=== PATIENT | male | born 1975 | race Caucasian/White ===

== ENCOUNTER 2018-01-21 16:42 | Emergency (ER) | payer OTHER ==
--- NOTE | 2018-01-21 16:57 | EDPHY ---
H & P Stated Complaint: HX HERNIATED DISCS/[employer] YESTERDAY INCREASED PAIN NUMBNESS R FOOT Time Seen by Provider: 01/21/18 16:56 - Personal History Current Tetanus/Diphtheria Vaccine: Yes - Medical/Surgical History Hx Asthma: No Hx Chronic Respiratory Disease: No Hx Diabetes: No Hx Cardiac Disease: No Hx Renal Disease: No Hx Cirrhosis: No Hx Alcoholism: No Hx HIV/AIDS: No Hx Splenectomy or Spleen Trauma: No Other PMH: BACK PROB/APPY - Social History Smoking Status: Never smoked Constitutional: Initial Vital Signs Temperature (C) 36.5 C 01/21/18 16:51 Heart Rate 83 01/21/18 16:51 Respiratory Rate 18 01/21/18 16:51 Blood Pressure 124/64 H 01/21/18 16:51 O2 Sat (%) 94 01/21/18 16:51 O2 Delivery Mode Room Air Allergies/Adverse Reactions: No Known Allergies Allergy (Verified 01/21/18 16:49) Home Medications: Medication Instructions Recorded Ibuprofen 01/21/18 Prednisone 01/21/18 methylPREDNISolone [Medrol Dose 1 each PO AD #1 ea 01/21/18 Olvin] oxyCODONE IR [Oxycodone Ir (*)] 5 mg PO Q4-6PRN PRN #20 tab 01/21/18 Medical Decision Making ED Course/Re-evaluation: CHIEF COMPLAINT: Lower back pain and right leg pain HISTORY OF PRESENT ILLNESS: This patient is a 42 year old male with history of lumbar spine disc herniation complaining of low back pain and associated right leg numbness. He has been followed for spine problems for the past seven years. The patient was evaluated at [facility] last week and had an MRI 01/17/18 showing disc herniation at the L4 -5 right paracentral disc, narrowing right greater than left, and an additional small herniation at L5-S1. Yesterday, the patient went to play golf and had significant lower back pain after his first swing. This pain has not resolved. He describes it as a cramping sensation that does not stop. His right foot became completely numb and remains numb down to the toes. He is unable to walk as he states if he tries to move his right leg, he feels muscle spasms and is unable to move it due to pain. He denies any other recent trauma. No fever, incontinence of bladder or bowels, or other associated symptoms. REVIEW OF SYSTEMS: A 10 point review of systems was performed and is negative with the exception of the elements mentioned in the history of present illness. PHYSICAL EXAM: HR, BP, O2 Sat, RR. Temp noted General Appearance: Alert, well hydrated, appropriate, and non-toxic appearing. Head: Atraumatic without scalp tenderness or obvious injury Eyes: Pupils equal, round, reactive to light and accommodation, EOMI, no trauma , no injection. Ears: Clear bilaterally, no perforation, normal landmarks Nose: Atraumatic, no rhinorrhea, clear. Throat: There is no erythema or exudates, no lesions, normal tonsils, mucus membranes moist. Neck: Supple, 2+ carotid upstroke, nontender, no lymphadenopathy. Respiratory: No retractions, no distress, no wheezes, and no accessory muscle use. Lungs are clear to auscultation bilaterally. Cardiovascular: Regular rate and rhythm, no murmurs, rubs, or gallops. Bilateral carotid, radial, dorsalis pedis, and posterior tibial pulses intact. Good capillary refill all extremities. Gastrointestinal: Abdomen is soft, nontender, non-distended, no masses, no rebound, no guarding, no peritoneal signs. Musculoskeletal: Normal active ROM of all extremities, atraumatic. Neurological: Alert, appropriate, and interactive. Patient has anterior tibialis giveaway on the right. His is unable to perform right leg raise as well as cross leg raise on the left. Skin: No rashes, good turgor, no nodules on palpation. Past medical history: Lumbar disc herniation. Past surgical history: Appendectomy. Family history: Noncontributory. Social history: . at bedside. DIFFERENTIAL DIAGNOSIS: The differential diagnosis for the patient's back pain included but was not limited to musculoskeletal pain, epidural abscess, herniated disk, spinal fracture, and intra-abdominal causes including urinary system. MEDICAL DECISION MAKIN42 y/o male with history of lumbar disc herniation presents with lower back pain and right leg numbness. On exam, the patient has anterior tibialis giveaway on the right and is unable to perform a leg raise on either side. Plan to administer 1mg IV Dilaudid and 10mg IV Decadron for symptom relief. 17:[address] Florentino, neurosurgeon. He would like the patient to wait two days to see if his motor deficits resolve before consulting regarding surgery. Reassessed patient. Plan to discharge home in good condition with prescription for Medrol Dosepak and oxycodone for symptom relief. He will follow up with neurosurgery for further evaluation. Return precautions discussed. He is comfortable with this plan. - Data Points Medications Given: Discontinued Medications Dexamethasone (Decadron Injection) 10 mg IVP EDNOW ONE Stop: 01/21/18 17:07 Last Admin: 01/21/18 17:17 Dose: 10 mg Hydromorphone HCl (Dilaudid) 1 mg IVP EDNOW ONE Stop: 01/21/18 17:06 Last Admin: 01/21/18 17:17 Dose: 1 mg Ondansetron HCl (Zofran Odt 4 Mg Prepack#2) 1 btl TAKEHOME EDNOW ONE Stop: 01/21/18 18:28 Last Admin: 01/21/18 18:29 Dose: 1 btl Oxycodone/Acetaminophen (Percocet 5/325mg Prepack#4) 1 btl TAKEHOME EDNOW ONE Stop: 01/21/18 19:14 Last Admin: 01/21/18 19:27 Dose: 1 btl Departure - Departure Disposition: Home, Routine, Self-Care Clinical Impression: Back pain Qualifiers: Back pain location: low back pain Chronicity: acute Back pain laterality: right Sciatica presence: with sciatica Sciatica laterality: sciatica of right side Qualified Code(s): M54.41 - Lumbago with sciatica, right side Condition: Good Instructions: Oxycodone/Acetaminophen (By mouth), Ondansetron (By mouth), Acute Low Back Pain (ED), Lumbar Radiculopathy (ED) Additional Instructions: 1. Take Medrol Dosepak as prescribed. 2. Take Oxycodone IR as prescribed as needed for severe pain. 3. Follow up with neurosurgery in two days for symptoms unresolved. 4. Return to the emergency department for severe pain, fever, increased numbness , increased difficulty walking, change in location or nature of pain, inability to control your bladder or bowels, or other concerns. Referrals: Louise Weinstein MD [Primary Care Provider] - As per Instructions Rian Florentino MD [Medical Doctor] - As per Instructions [facility] [Provider Group] - As per Instructions Prescriptions: methylPREDNISolone [Medrol Dose Olvin] 1 each PO AD #1 ea oxyCODONE IR [Oxycodone Ir (*)] 5 mg PO Q4-6PRN PRN #20 tab PRN Reason: Pain, Moderate Report Scribed for: Flavio Sanchez Report Scribed by: Alaina Mason Date of Report: 01/21/18 Time of Report: 19:38
[2018-01-21] MEDS ORDERED: HYDROmorphONE/DILAUDID 2 MG/ML INJ IVP ONE (17:05)
[2018-01-21] MEDS ORDERED: DEXAMETHASONE 10 MG/ML VIAL IVP ONE (17:06)
[2018-01-21] MEDS ORDERED: ONDANSETRON DISINTEGRATING 4 MG TAB ONE (18:10)
[2018-01-21] MEDS ORDERED: ONDANSETRON 4MG PREPACK#2 BTL TAKEHOME ONE ×2 (18:26→18:27)
[2018-01-21 18:36] VITALS: BP 128/74
[2018-01-21] MEDS ORDERED: OXYCODONE/APAP 5/325MG PREPACK#4 BTL TAKEHOME ONE (19:13)
== END 2018-01-21 18:36 | disposition home or self-care (01) ==
DX: M54.41 Lumbago with sciatica, right side (principal)
CPT/HCPCS: 96374; J1100; J1170

== ENCOUNTER 2018-11-19 10:32 | Emergency (ER) | payer OTHER ==
[2018-11-19] MEDS ORDERED: NS 1,000 ML IV ONE (12:19)
[2018-11-19 13:11] LABS: PLATELET COUNT 352 10^3/uL (150-400)
[2018-11-19 13:19] LABS: INR 0.99 (0.83-1.16); PROTIME(PATIENT) 13.3 SEC (12.0-15.0)
--- NOTE | 2018-11-19 14:17 | ASMTCMCOM ---
CM Note CM Note Notes: Patient presented to the ED for ETOH abuse and wanting to seek treatment. Pt was later accompanied by his ex-, Felicia Gonzalez and his roommate Roshan. Felicia is very supportive and encouraging. Felicia and the patient have 16-year-old twin boys and are still very much involved in each other's lives. 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 Pt states he started drinking alcohol when he was 15 years old and describes himself as "a huge binge drinker." But recently pt states he consumes 6-10 drinks of hard alcohol, beer and/or wine everyday. Pt states he does not use any other illicit drugs but does smoke marijuana occasionally. Pt denies having any mental health diagnoses and states he has never taken any medications for mental health reasons. Pt denies SI/HI. Pt states he has never been to a detox center/facility or any other treatment program. Pt states he has detoxed at home by himself and states he has never experienced withdrawal seizures or hallucinations. Pt states the longest he has abstained from alcohol use was for about 2 months when he was around 32 years old. Pt is at times emotional and states he wants help getting sober. Pt is very pleasant, cooperative and appreciative of assistance. Date Signed: 11/19/2018 02:17 PM Electronically Signed By:Jessie Reynaga RN
--- NOTE | 2018-11-19 14:23 | EDPHY ---
H & P Stated Complaint: etoh detox Time Seen by Provider: 11/19/18 12:09 HPI/ROS: CHIEF COMPLAINT: Alcoholic, need detox HISTORY OF PRESENT ILLNESS: This is a 43-year-old male presents with his ex- and roommate with a history that he is requesting detox. Patient tells me that he has "never been sober in his life". He reports the daily, heavy alcohol use. He denies illicit drug use except for marijuana. Denies any history of renal failure, liver failure, GI hemorrhage, or alcohol withdrawal. No history of fevers or chills, shortness of breath, chest pain, palpitations, lightheadedness, headache, or diarrhea. Patient does report that he is quite depressed. REVIEW OF SYSTEMS: A comprehensive 10 system review of systems was reviewed and is otherwise negative aside from elements mentioned in the history of present illness and medical decision making. PAST MEDICAL HISTORY: Alcoholic SOCIAL HISTORY: Nonsmoker. VITAL SIGNS Reviewed by me. GENERAL: Well-developed, well-nourished, seems intoxicated. HEENT: Atraumatic. Eyes: No icterus, no injection. Mouth: Dry mucous membranes. No erythema or lesions. Neck: supple with no adenopathy. LUNGS: Clear to auscultation bilaterally, no wheezes, rhonchi or rales. CARDIAC: Regular rate and rhythm, no rubs, murmurs or gallops. ABDOMEN: Soft, nontender, nondistended, bowel sounds normal. BACK: No CVA tenderness. EXTREMITIES: No trauma. No edema. Range of motion is normal throughout. NEURO: Alert and oriented, grossly nonfocal. No tremor. SKIN: Warm and dry, no rash. No spider hemangioma PSYCHIATRIC: Normal mentation, no agitation. - Personal History Current Tetanus Diphtheria and Acellular Pertussis (TDAP): Yes - Medical/Surgical History Hx Asthma: No Hx Chronic Respiratory Disease: No Hx Diabetes: No Hx Cardiac Disease: No Hx Renal Disease: No Hx Cirrhosis: No Hx Alcoholism: Yes Hx HIV/AIDS: No Hx Splenectomy or Spleen Trauma: No Other PMH: BACK PROB/APPY - Social History Smoking Status: Never smoked Constitutional: Initial Vital Signs Temperature (C) 36.4 C 11/19/18 10:36 Heart Rate 84 11/19/18 10:36 Respiratory Rate 18 11/19/18 10:36 Blood Pressure 117/77 11/19/18 10:36 O2 Sat (%) 95 11/19/18 10:36 O2 Delivery Mode Room Air Allergies/Adverse Reactions: No Known Allergies Allergy (Verified 11/19/18 10:35) Home Medications: Medication Instructions Recorded NK [No Known Home Meds] 11/19/18 Medical Decision Making ED Course/Re-evaluation: 43-year-old male with history of alcohol abuse now presenting requesting detox. Family members would prefer not go to the [facility]. Patient's family states that he has been to [facility] in the past but has not otherwise been admitted for inpatient or intensive alcohol treatment. IV was placed in the patient had labs sent. Alcohol level at this time as 275, liver function tests are normal. PT and INR normal. The patient seen and evaluated by the heel caser in the emergency department. We will attempt to find placement for this patient. In for by case management that the patient has been accepted to [facility]. They are anticipating his arrival there at 5:15 p.m.. Patient is safe to be discharged with his sober ex- who will take him to [facility]. Differential Diagnosis: Differential diagnoses for the patient's symptom complex was considered including but not limited to alcohol intoxication, illicit drug use, alcohol withdrawal, alcohol dependency, requesting alcohol detoxification. - Data Points Laboratory Results: Laboratory Results 11/19/18 12:35 11/19/18 12:35 Medications Given: Discontinued Medications Sodium Chloride (Ns) 1,000 mls @ 0 mls/hr IV ONCE ONE; Wide Open PRN Reason: Protocol Stop: 11/19/18 12:20 Last Admin: 11/19/18 12:42 Dose: 1,000 mls Departure - Departure Disposition: Home, Routine, Self-Care Clinical Impression: Alcoholic intoxication Qualifiers: Complication of substance-induced condition: uncomplicated Qualified Code(s): F10.920 - Alcohol use, unspecified with intoxication, uncomplicated Alcohol dependence Qualifiers: Substance use status: uncomplicated Qualified Code(s): F10.20 - Alcohol dependence, uncomplicated Condition: Fair Instructions: Alcohol Intoxication (ED), Abuse of Alcohol (ED), Alcohol Dependence (ED) Additional Instructions: Proceed to [facility] at 5:15 p.m. for admission to rehab. Referrals: Louise Weinstein MD [Primary Care Provider] - As per Instructions
[2018-11-19 15:48] VITALS: BP 127/74
--- NOTE | 2018-11-19 18:49 | ASMTCMCOM ---
CM Note CM Note Notes: Spoke w/Isabella in intake/admissions ([phone]) at [facility] re:pt being admitted to their Chemical Dependency Unit for ETOH abuse detox. Isabella was able to access the [facility] referral but requested that pt's facesheet be faxed; s CM faxed pt's facesheet to (f: [phone]). Isabella stated pt is accepted and asked that pt not present to CP until 1730 due to them having multiple admissions this afternoon. Pt and his ex-, Felicia (c:[phone]), are agreeable to this plan. Isabella asked CM if an RN would be able to call and give report around 1700.; this RN CM called ([phone]) and gave RN report to Yaneth (?) on their CDU. Pt was discharged w/Felicia to transport him to for intake admission at 1730. CM also provided pt with other IOP/OP and other longer term residential rehab resources. Pt pleasant and appreciative of assistance. Date Signed: 11/19/2018 06:49 PM Electronically Signed By:Jessie Reynaga RN
--- NOTE | 2018-11-19 18:50 | ASDISCHSUM ---
Discharge Information Plan Status:Substance Abuse Referrals Medically Cleared to Leave: Discharge Date:11/19/2018 03:47 PM CM D/C Disposition: ADT D/C Disposition:Home, Routine, Self-Care Projected Discharge Date:11/19/2018 03:00 PM Transportation at D/C:Friend Discharge Delay Reason: Follow-Up Date:11/19/2018 03:00 PM Discharge Slot: Final Diagnosis: Placement Information Referral Type:[facility] Hospital or Unit Referral ID:[id number] Provider Name:[facility] Address 1:[address] Address 2: City:[place] Selection Factors: State:[place] Patient Contact Information Contact Name:FELIBERTO Relationship:Life Partner Address: Work Phone: City: [facility] Phone: [facility]/[employer] Code: Email: Financial Information Financial Class:HMO and PPO Plans Primary Plan Desc:[employer] ARIELLE HUFF Primary Plan Number:[id number] Secondary Plan Desc: Secondary Plan Number: Assessment Information [facility] CM Progress Note CM Note CM Note Notes: Patient presented to the ED for ETOH abuse and wanting to seek treatment. Pt was later accompanied by his ex-, Felicia Gonzalez and his roommate Roshan. eFlicia is very supportive and encouraging. Felicia and the patient have 16-year-old twin boys and are still very much involved in each other's lives. 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 Pt states he started drinking alcohol when he was 15 years old and describes himself as "a huge binge drinker." But recently pt states he consumes 6-10 drinks of hard alcohol, beer and/or wine everyday. Pt states he does not use any other illicit drugs but does smoke marijuana occasionally. Pt denies having any mental health diagnoses and states he has never taken any medications for mental health reasons. Pt denies SI/HI. Pt states he has never been to a detox center/facility or any other treatment program. Pt states he has detoxed at home by himself and states he has never experienced withdrawal seizures or hallucinations. Pt states the longest he has abstained from alcohol use was for about 2 months when he was around 32 years old. Pt is at times emotional and states he wants help getting sober. Pt is very pleasant, cooperative and appreciative of assistance. Date Signed: 11/19/2018 02:17 PM Electronically Signed By:Jessie Reynaga RN [facility] Progress Note CM Note CM Note Notes: Spoke w/Isabella in intake/admissions ([phone]) at [facility] re:pt being admitted to their Chemical Dependency Unit for ETOH abuse detox. Isabella was able to access the [facility] referral but requested that pt's facesheet be faxed; [facility] faxed pt's facesheet to (f: [phone]). Isabella stated pt is accepted and asked that pt not present to until 1730 due to them having multiple admissions this afternoon. Pt and his ex-, Felicia (c:[phone]), are agreeable to this plan. Isabella asked if an RN would be able to call and give report around 1700.; this RN CM called ([phone]) and gave RN report to Yaneth (?) on their CDU. Pt was discharged w/Felicia to transport him to for intake admission at 1730. also provided pt with other IOP/OP and other longer term residential rehab resources. Pt pleasant and appreciative of assistance. Date Signed: 11/19/2018 06:49 PM Electronically Signed By:Jessei Reynaga RN Intervention Information
== END 2018-11-19 15:47 | disposition home or self-care (01) ==
DX: F10.220 Alcohol dependence with intoxication, uncomplicated (principal); E86.9 Volume depletion, unspecified; Y90.8 Blood alcohol level of 240 mg/100 ml or more
CPT/HCPCS: 80305; G0480